=== PATIENT | female | born 1930 | race American Indian/Alaskan Native ===

== ENCOUNTER 2017-05-08 10:46 | Emergency (ER) | payer MEDICARE, OTHER ==
--- NOTE | 2017-05-08 16:58 | Emergency Department Report ---
ED Headache HPI - General Chief Complaint: Headache Stated Complaint: HEAD PAIN Time Seen by Provider: 05/08/17 15:58 Source: patient Exam Limitations: no limitations - History of Present Illness Initial Comments: 87 yo female who comes in today due to a headache. She states that it has been present since April 22. She states that it is right-sided, parietal- occipital, throbbing, 8/10, constant, with radiation down her neck. She admits to seeing her provider, and was instructed to take tylenol and use a heating pad. That hasn't helped. She denies any falls, trauma, new onset weakness, nausea, or vomiting. Timing/Duration: other (two weeks ) Quality: moderate Head Injury Location: occipital (right sided), parietal Recent Head Trauma: no recent headache/trauma Modifying Factors: improves with: other (nothing ) Allergies/Adverse Reactions: Allergies acebutolol Allergy (Verified 05/08/17 11:08) Anaphylaxis cyclobenzaprine Allergy (Verified 05/08/17 11:08) Unknown ibuprofen Allergy (Verified 05/08/17 11:08) Unknown Penicillins Allergy (Verified 05/08/17 11:08) Unknown tetanus and diphtheria toxoids Allergy (Verified 05/08/17 11:08) Unknown Home Medications: Ambulatory Orders ALBUTEROL Inhaler [Proair] 2 puff IH QID PRN 05/08/17 Allopurinol 100 mg PO BID 05/08/17 Amlodipine Besylate/Valsartan [Exforge 5-320 mg Tablet] 1 each PO DAILY Clobetasol 0.05% [Temovate] 1 applicatio TP BID 05/08/17 Fluticasone/Salmeterol [Advair Diskus 250-50 mcg] 1 puff IH BID 05/08/17 Fluticasone/Salmeterol [Advair Diskus 500-50 mcg] 1 puff IH BID 05/08/17 Loratadine 10 mg PO DAILY 05/08/17 Montelukast [Singulair] 10 mg PO QPM 05/08/17 Pravastatin [Pravachol] 20 mg PO DAILY 05/08/17 ED Review of Systems ROS: Stated complaint: HEAD PAIN Other details as noted in HPI Constitutional: denies: chills, fever Eyes: denies: eye pain, eye discharge, vision change ENT: denies: ear pain, throat pain Respiratory: denies: cough, shortness of breath, wheezing Cardiovascular: denies: chest pain, palpitations Endocrine: no symptoms reported Gastrointestinal: denies: abdominal pain, nausea, diarrhea Genitourinary: denies: urgency, dysuria, discharge Musculoskeletal: denies: back pain, joint swelling, arthralgia Skin: denies: rash, lesions Neurological: as per HPI, headache Psychiatric: denies: anxiety, depression Hematological/Lymphatic: denies: easy bleeding, easy bruising ED Past Medical Hx - Past Medical History Hx Hypertension: Yes Hx Diabetes: Yes Additional medical history: gout - Surgical History Additional Surgical History: Hyst, carpal tunnel - Social History Smoking Status: Never Smoker Substance Use Type: None - Medications Home Medications: Home Medications Medication Instructions Recorded Confirmed Last Taken Type ALBUTEROL Inhaler [Proair] 2 puff IH QID PRN 05/08/17 05/08/17 05/06/17 History Allopurinol 100 mg PO BID 05/08/17 05/08/17 05/06/17 History Amlodipine Besylate/Valsartan 1 each PO DAILY 05/08/17 05/08/17 05/08/17 History [Exforge 5-320 mg Tablet] Clobetasol 0.05% [Temovate] 1 applicatio TP BID 05/08/17 05/08/17 05/06/17 History Fluticasone/Salmeterol [Advair 1 puff IH BID 05/08/17 05/08/17 05/06/17 History Diskus 250-50 mcg] Fluticasone/Salmeterol [Advair 1 puff IH BID 05/08/17 05/08/17 05/06/17 History Diskus 500-50 mcg] Loratadine 10 mg PO DAILY 05/08/17 05/08/17 05/08/17 History Montelukast [Singulair] 10 mg PO QPM 05/08/17 05/08/17 05/06/17 History Pravastatin [Pravachol] 20 mg PO DAILY 05/08/17 05/08/17 05/06/17 History ED Physical Exam - General Limitations: No Limitations General appearance: alert, in no apparent distress - Head Head exam: Present: atraumatic, normocephalic - Eye Eye exam: Present: normal appearance - ENT ENT exam: Present: mucous membranes moist - Neck Neck exam: Present: normal inspection - Respiratory Respiratory exam: Present: normal lung sounds bilaterally. Absent: respiratory distress - Cardiovascular Cardiovascular Exam: Present: regular rate, normal rhythm. Absent: systolic murmur, diastolic murmur, rubs, gallop - Extremities Exam Extremities exam: Present: normal inspection - Back Exam Back exam: Present: normal inspection - Neurological Exam Neurological exam: Present: alert, oriented X3 - Psychiatric Psychiatric exam: Present: normal affect, normal mood - Skin Skin exam: Present: warm, dry, intact, normal color. Absent: rash ED Course Vital Signs 05/08/17 05/08/17 11:08 15:31 Temperature 98.2 F Pulse Rate 100 H 81 Respiratory 20 18 Rate Blood Pressure 141/88 Blood Pressure 163/61 [Right] O2 Sat by Pulse 99 100 Oximetry ED Medical Decision Making - Radiology Data Radiology results: report reviewed (No acute pathology, acute on chronic sinusitis ) - Medical Decision Making Acute vs chronic sinusitis Headache - Differential Diagnosis Acute vs chronic sinusitis, headache Critical care attestation.: If time is entered above; I have spent that time in minutes in the direct care of this critically ill patient, excluding procedure time. ED Disposition Clinical Impression: Acute sinusitis, Chronic sinusitis Disposition: -01 TO HOME OR SELFCARE Is pt being admited?: No Does the pt Need Aspirin: No Condition: Stable Instructions: Sinusitis (ED) Additional Instructions: Please follow up with your provider on discharge. Referrals: PRIMARY CARE [Primary Care Provider] - 3-5 Days Time of Disposition: 18:27
--- NOTE | 2017-05-08 18:25 | Cat Scan Report ---
FINAL REPORT EXAM: CT HEAD/BRAIN WO CON HISTORY: headache TECHNIQUE: Standard unenhanced CT of the head at 5.0 millimeter axial increments. PRIORS: None. FINDINGS: The ventricular system is normal in size and configuration. There is mild cerebral atrophy. Low-density in the periventricular white matter is consistent with small vessel ischemic changes. There is no evidence for mass lesion, mass effect, midline shift, acute intracranial hemorrhage, or acute ischemia/ infarction. No evidence for acute skull fracture is seen. Hyperostosis of the frontal bones is noted. No abnormality in the overlying scalp soft tissues is seen. Visualized paranasal sinuses demonstrates an air-fluid level in the right maxillary sinus with extensive opacification throughout numerous bilateral ethmoid air cells and mucosal thickening in the sphenoid sinuses. IMPRESSION: 1. atrophy and small vessel ischemic changes. No acute intracranial process noted. 2. Acute on chronic sinusitis
[2017-05-08 19:06] VITALS: BP 161/80
== END 2017-05-08 20:00 | disposition home or self-care (01) ==
LOC: ED 10:46
DX: J01.80 Other acute sinusitis (principal); J32.8 Other chronic sinusitis; I10 Essential (primary) hypertension; E11.9 Type 2 diabetes mellitus without complications; M10.9 Gout, unspecified; Z88.0 Allergy status to penicillin; Z88.6 Allergy status to analgesic agent; Z88.8 Allergy status to other drugs, medicaments and biological substances
CPT/HCPCS: 70450; 96372; 99283; J2930

== ENCOUNTER 2018-08-19 11:48 | Emergency (ER) | payer MEDICARE, OTHER ==
--- NOTE | 2018-08-19 12:21 | Emergency Department Report ---
Blank Doc - Documentation Documentation: 88 y/o female comes for Rash and left arm and left facial pain. No nausea vom iting or fever. Patient had seen her PCP. PMH DM, HTN and gout.
[2018-08-19 12:23] VITALS: BP 151/92
--- NOTE | 2018-08-19 14:04 | Emergency Department Report ---
ED Rash HPI - HPI Chief Complaint: Pain General Stated Complaint: Pain in head and shoulders Time Seen by Provider: 08/19/18 13:10 Duration: 3 Days Location: Upper Extremities (left upper chest and shoulder) Rash Symptoms: Yes Blistering, No Itching, No Facial Swelling, No Tongue/Oral Swelling, No Breathing Difficulties, No Choking Sensation, No Wheezing/Dyspnea, No Peeling, No Fever, No Lightheaded, No Malaise, No Myalgias Severity: moderate Other History: This is a 88-year-old healthy looking female who presents to ED complaining about a burning type pain/rash redness on her left upper chest shoulder. Patient states the pain began 3 days ago with a burning type sensation so she put heat pack to it. Patient states next day she noticed the redness and plan. Like rash on her left upper shoulder. She denies fevers/chills/nausea vomiting or any other problems. ED Review of Systems ROS: Stated complaint: Pain in head and shoulders Other details as noted in HPI Comment: All other systems reviewed and negative ED Past Medical Hx - Past Medical History Previous Medical History?: Yes Hx Hypertension: Yes Hx Diabetes: Yes Hx Asthma: Yes Additional medical history: gout - Surgical History Past Surgical History?: Yes Additional Surgical History: Hyst, carpal tunnel - Social History Smoking Status: Never Smoker Substance Use Type: None - Medications Home Medications: Home Medications Medication Instructions Recorded Confirmed Last Taken Type ALBUTEROL Inhaler (OR & NICU) 2 puff IH QID PRN 05/08/17 05/08/17 05/06/17 Hi story [Proair] Allopurinol 100 mg PO BID 05/08/17 05/08/17 05/06/17 History Amlodipine Besylate/Valsartan 1 each PO DAILY 05/08/17 05/08/17 05/08/17 History [Exforge 5-320 mg Tablet] Clobetasol 0.05% [Temovate] 1 applicatio TP BID 05/08/17 05/08/17 05/06/17 History Fluticasone/Salmeterol [Advair 1 puff IH BID 05/08/17 05/08/17 05/06/17 History Diskus 250-50 mcg] Fluticasone/Salmeterol [Advair 1 puff IH BID 05/08/17 05/08/17 05/06/17 History Diskus 500-50 mcg] Loratadine 10 mg PO DAILY 05/08/17 05/08/17 05/08/17 History Montelukast [Singulair] 10 mg PO QPM 05/08/17 05/08/17 05/06/17 History Pravastatin [Pravachol] 20 mg PO DAILY 05/08/17 05/08/17 05/06/17 History Acetaminophen/Codeine [Tylenol 1 tab PO Q6H #12 tab 08/19/18 Unknown Rx /Codeine # 3 tab] Acyclovir [Zovirax] 1 applic TP TID #1 oint...g. 08/19/18 Unknown Rx valACYclovir [Valtrex] 500 mg PO 5XD #21 tab 08/19/18 Unknown Rx Rash Exam - Exam General: Vital signs noted. No distress. Alert and acting appropriately. HEENT: No Periorbital Edema, No Conjuctival Injection, No Chemosis, No Perioral Edema, No Tongue Edema, No Uvular Edema, No Compromised Airway, No Drooling Lungs: Yes Good Air Exchange (Normal Breath Sounds), No Wheezes, No Ronchi, No Stridor, No Cough, No Labored Respirations, No Retractions, No Use of Accessory Muscles, No Other Abnormal Lung Sounds Heart: Yes Regular, No Murmur Skin: Yes Maculopapular Rash, Yes Tenderness, Yes Erythema, No Urticarial Rash, No Morbilliform rash, No Bulla(e), No Excoriations, No Weeping, No Edema, No Encrustations, No Other (erythematous, raised, red rash along the dermatome) Other: Positive: Abdomen Normal, Neurologic Normal, Musculoskeletal Normal ED Course Vital Signs 08/19/18 12:16 Temperature 98.1 F Pulse Rate 113 H Respiratory 18 Rate Blood Pressure 151/92 O2 Sat by Pulse 98 Oximetry ED Medical Decision Making - Medical Decision Making 88-year-old female presents with shingles along her left shoulder. Vital signs are normal patient is in no acute distress. I discussed the patient and she'll be going home on some antiviral and pain medication. I also discussed with the patient she'll have some topical cream if she continues for the rash. Vital signs are normal patient is in no acute distress. Patient understand instructions and states she'll follow up with her primary care physician. Critical care attestation.: If time is entered above; I have spent that time in minutes in the direct care of this critically ill patient, excluding procedure time. ED Disposition Clinical Impression: Shingles rash Disposition: DC-01 TO HOME OR SELFCARE Is pt being admited?: No Does the pt Need Aspirin: No Condition: Stable Instructions: Herpes Zoster (ED) Additional Instructions: Make sure to follow up with the primary care physician as discussed. Take all your medications as you've been prescribed. If you have any worsening symptoms or develop new symptoms please return to ED immediately. Prescriptions: Acetaminophen/Codeine [Tylenol /Codeine # 3 tab] 1 tab PO Q6H #12 tab valACYclovir [Valtrex] 500 mg PO 5XD #21 tab Acyclovir [Zovirax] 1 applic TP TID #1 oint...g. Referrals: PRIMARY CARE, [Primary Care Provider] - 3-5 Days [facility] [Outside] - 3-5 Days [facility] [Outside] - 3-5 Days Forms: Accompanied Note, Work/School Release Form(ED) Time of Disposition: 14:19
== END 2018-08-19 15:00 | disposition home or self-care (01) ==
LOC: ED 11:48
DX: B02.9 Zoster without complications (principal); I10 Essential (primary) hypertension; E11.9 Type 2 diabetes mellitus without complications; J45.909 Unspecified asthma, uncomplicated
CPT/HCPCS: 99282

== ENCOUNTER 2018-09-08 13:35 | Emergency (ER) | payer MEDICARE, OTHER ==
--- NOTE | 2018-09-08 14:04 | Emergency Department Report ---
Blank Doc - Documentation Documentation: 88 y o female present to left hip pain x 2 days worsening radiating to groin area to inner thighs denies fall, trauma , injury was recently seen by PCP given tramadol, did not agree with her stomach pain causing insomnia MAin Ed Room 8
[2018-09-08] MEDS ORDERED: ZOFRAN IM ONE (14:40)
[2018-09-08] MEDS ORDERED: SUBLIMAZE IM ONE (14:40)
--- NOTE | 2018-09-08 14:46 | Emergency Department Report ---
HPI - General Chief Complaint: Extremity Problem,Nontraumatic Time Seen by Provider: 09/08/18 13:59 - HPI HPI: Room 8 The patient is an 88-year-old female presenting with chief complaint of left hip pain. The patient states she's had pain in the left hip for the past 3 weeks. Patient states the pain worsens with ambulation and weightbearing. Patient denies any preceding trauma. Patient states a hot water bottle helps but the pain returns. Patient currently gives her pain a score 6/10 Location: Left hip Duration: 3 weeks Quality: Pain Severity:6/10 Modifying factors: [see above] Context: [see above] Mode of transportation: [not driving] ED Past Medical Hx - Past Medical History Previous Medical History?: Yes Hx Hypertension: Yes Hx Diabetes: Yes Hx Asthma: Yes Additional medical history: gout - Surgical History Past Surgical History?: Yes Additional Surgical History: Hyst, carpal tunnel - Family History Family history: no significant - Social History Smoking Status: Never Smoker Substance Use Type: None - Medications Home Medications: Home Medications Medication Instructions Recorded Confirmed Last Taken Type ALBUTEROL Inhaler (OR & NICU) 2 puff IH QID PRN 05/08/17 05/08/17 05/06/17 History [Proair] Allopurinol 100 mg PO BID 05/08/17 05/08/17 05/06/17 History Amlodipine Besylate/Valsartan 1 each PO DAILY 05/08/17 05/08/17 05/08/17 History [Exforge 5-320 mg Tablet] Clobetasol 0.05% [Temovate] 1 applicatio TP BID 05/08/17 05/08/17 05/06/17 History Fluticasone/Salmeterol [Advair 1 puff IH BID 05/08/17 05/08/17 05/06/17 History Diskus 250-50 mcg] Fluticasone/Salmeterol [Advair 1 puff IH BID 05/08/17 05/08/17 05/06/17 History Diskus 500-50 mcg] Loratadine 10 mg PO DAILY 05/08/17 05/08/17 05/08/17 History Montelukast [Singulair] 10 mg PO QPM 05/08/17 05/08/17 05/06/17 History Pravastatin [Pravachol] 20 mg PO DAILY 05/08/17 05/08/17 05/06/17 History Acetaminophen/Codeine [Tylenol 1 tab PO Q6H #12 tab 08/19/18 Unknown Rx /Codeine # 3 tab] Acyclovir [Zovirax] 1 applic TP TID #1 oint...g. 08/19/18 Unknown Rx valACYclovir [Valtrex] 500 mg PO 5XD #21 tab 08/19/18 Unknown Rx HYDROcodone/APAP 5-325 [[place] 1 - 2 each PO Q6HR PRN #14 tablet 09/08/18 Un known Rx 5/325] ED Review of Systems ROS: Stated complaint: (L) HIP PAIN Other details as noted in HPI Constitutional: no symptoms reported Eyes: denies: eye pain ENT: denies: throat pain Respiratory: no symptoms reported Cardiovascular: denies: chest pain Endocrine: no symptoms reported Gastrointestinal: denies: abdominal pain Genitourinary: denies: dysuria Musculoskeletal: arthralgia Skin: rash (zoster) Neurological: denies: headache Physical Exam - Physical Exam Vital Signs: Vital Signs 09/08/18 13:59 Temperature 98.1 F Pulse Rate 93 H Respiratory 22 Rate Blood Pressure 133/61 O2 Sat by Pulse 100 Oximetry Physical Exam: GENERAL: The patient is well-developed well-nourished female lying on stretcher not appearing to be in acute distress. [] HEENT: Normocephalic. Atraumatic. Extraocular motions are intact. Patient has moist mucous membranes. NECK: Supple. Trachea midline CHEST/LUNGS: There is no respiratory distress noted. HEART/CARDIOVASCULAR: Regular. There is no tachycardia. 2+ left DP SKIN: Healing zoster to left chest. There is no diaphoresis. NEURO: The patient is awake, alert, and oriented. The patient is cooperative. The patient has normal speech MUSCULOSKELETAL: There is pain elicited in the left hip with range of motion ED Course Vital Signs 09/08/18 13:59 Temperature 98.1 F Pulse Rate 93 H Respiratory 22 Rate Blood Pressure 133/61 O2 Sat by Pulse 100 Oximetry ED Medical Decision Making - Radiology Data Radiology results: report reviewed (left hip x-ray), image reviewed (left hip x- ray) interpreted by me: X-ray-no acute fracture [facility] [address] [place] [address] XRay Report Signed Patient: NONI MCKENNA MR#: [id number] : 1930 Acct:[id number] Age/Sex: 88 / F ADM Date: 09/08/18 Loc: ED Attending Dr: Ordering Physician: JASSI LUCIA MD Date of Service: 09/08/18 Procedure(s): XR hip 2-3V LT Accession Number(s): [id number] cc: JASSI LUCIA MD Fluoro Time In Minutes: PROCEDURE: XR HIP 2-3V LT TECHNIQUE: 2 views of the left hip including frontal view of the pelvis HISTORY: pain with range of motion COMPARISONS: None. FINDINGS: There is no acute fracture or dislocation. There is mild bilateral hip joint space narrowing with associated hypertrophic changes. The sacroiliac joints and symphysis pubis are intact. The overlying soft tissues are normal. 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 This document is electronically signed by Kori Vázquez MD., Sep 08 2018 04:30:34 PM ET Transcribed By: DEIDRE Dictated By: KORI VÁZQUEZ MD Electronically Authenticated By: KORI VÁZQUEZ MD Signed Date/Time: 09/08/18 1632 DD/ 1543 TD/TT: 09/08/18 1543 - Differential Diagnosis arthritis, gout, occult fracture Critical care attestation.: If time is entered above; I have spent that time in minutes in the direct care of this critically ill patient, excluding procedure time. ED Disposition Clinical Impression: Left hip pain Disposition: - TO HOME OR SELFCARE Is pt being admited?: No Does the pt Need Aspirin: No Condition: Stable Instructions: Arthralgia (ED) Additional Instructions: Return to the emergency department immediately should you develop worsening symptoms, fever, inability to tolerate food or liquid or any other concerns. Prescriptions: HYDROcodone/APAP 5-325 [[place] 5/325] 1 - 2 each PO Q6HR PRN #14 tablet PRN Reason: Pain Referrals: OSMIN PALOMO MD [Staff Physician] - 3-5 Days (Dr. Palomo is an orthopedic surgeon. Please follow-up with him for further evaluation) Time of Disposition: 16:46
--- NOTE | 2018-09-08 16:32 | XRay Report ---
PROCEDURE: XR HIP 2-3V LT TECHNIQUE: 2 views of the left hip including frontal view of the pelvis HISTORY: pain with range of motion COMPARISONS: None. FINDINGS: There is no acute fracture or dislocation. There is mild bilateral hip joint space narrowing with ass ociated hypertrophic changes. The sacroiliac joints and symphysis pubis are intact. The overlying sof t tissues are normal. 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 This document is electronically signed by Kori Vela MD., Sep 08 2018 04:30:34 PM ET
[2018-09-08 17:41] VITALS: BP 129/71
== END 2018-09-08 18:12 | disposition home or self-care (01) ==
LOC: ED 13:35
DX: M25.552 Pain in left hip (principal); I10 Essential (primary) hypertension; E11.9 Type 2 diabetes mellitus without complications; J45.909 Unspecified asthma, uncomplicated; Z88.6 Allergy status to analgesic agent; Z88.1 Allergy status to other antibiotic agents; Z88.0 Allergy status to penicillin; Z88.8 Allergy status to other drugs, medicaments and biological substances
CPT/HCPCS: 73502; 96372; 99283; J2405; J3010